=== PATIENT | male | born 1995 | race Caucasian/White ===

== ENCOUNTER 2020-12-21 23:10 | Emergency (ER) | payer BC ==
[~2020-12-21] VITALS: Ht 177.8 cm; Wt 80.0 kg
[2020-12-21 23:10] VITALS: BP 0/0
[2020-12-21] MEDS ORDERED: EPINEPHrine 1:10,000 [1 MG/10 ML] SYRINGE IVP ONE (23:11)
[2020-12-21] MEDS ORDERED: 0.9% SODIUM CHLORIDE 10 ML SYRINGE IVP ONE (23:11)
[2020-12-21 23:36] LABS: GLUCOMETER DEV NAME(LOC) ERT.5; GLUCOSE,POINT OF CARE 94 MG/DL (70-110)
== END 2020-12-22 03:51 ==
LOC: EMS 23:10
DX: I46.9 Cardiac arrest, cause unspecified (principal)
CPT/HCPCS: 31500; 82962; 92950; 99291; J0171; X7700